=== PATIENT | male | born 1960 | race Caucasian/White ===

== ENCOUNTER → 2018-07-22 | Outpatient (CLI) | payer OTHER ==
--- NOTE | 2018-07-22 10:47 | MR ---
EXAMINATION TYPE: MR knee LT wo con DATE OF EXAM: 07/22/2018 COMPARISON: None HISTORY: Left knee pain, Internal derangement TECHNIQUE: Multiplanar, multisequence imaging of the left knee is performed without IV contrast. FINDINGS: MEDIAL MENISCUS: There is linear signal within the substance of the posterior horn medial meniscus co mpatible some internal derangement. Communication with the articular surface may potentially be along the anterior portion posterior horn of the medial meniscus. The anterior horn medial meniscus appear s normal. LATERAL MENISCUS: Anterior and posterior horns are intact without tear. CRUCIATE LIGAMENTS: The anterior and posterior cruciate ligaments are intact and unremarkable. COLLATERAL LIGAMENTS: The medial collateral ligament and lateral collateral ligament complex are inta ct and unremarkable. EXTENSOR MECHANISM: Visualized quadriceps and patellar tendons are intact. EFFUSION: There appears be minimal joint effusion. POPLITEAL CYST: No popliteal/jamil cyst. TRICOMPARTMENT SPACES: Preserved CARTILAGE: There appears to be some thinning of the articular cartilage along the anterior femoral po pliteal space. Underlying signal abnormality within the femur is present suggesting contusion. BONE MARROW SIGNAL: Increased signal within the anterior lateral femoral condyle suggestive for anter ior femoral contusion. OTHER: No additional significant abnormality is appreciated. IMPRESSION: 1. Internal derangement posterior horn medial meniscus. Horizontal tear could be considered within th e differential. 2. Small joint effusion. 3. Suspected contusion with articular thinning or injury along the anterior femur at the patellofemor al joint space.
== END ==
LOC: RADMRIMAIN 07:39
PROVIDERS: ATTEND Family Medicine
DX: M23.322 Other meniscus derangements, posterior horn of medial meniscus, left knee (principal); M25.462 Effusion, left knee

== ENCOUNTER → 2018-09-17 | Outpatient (CLI) | payer OTHER ==
[2018-09-17 13:37] LABS: Basophils % (A) 0 %; Eosinophils # (A) 0.1 k/uL (0-0.7); Eosinophils % (A) 3 %; HCT 45.6 % (39.0-53.0); HGB 15.1 gm/dL (13.0-17.5); Lymphocytes # (A) 1.8 k/uL (1.0-4.8); Lymphocytes % (A) 34 %; MCH 28.1 pg (25.0-35.0); MCHC 33.1 g/dL (31.0-37.0); MCV 84.8 fL (80.0-100.0); Mean Platelet Volume 6.3; Monocytes # (A) 0.3 k/uL (0-1.0); Monocytes % (A) 6 %; Neutrophils # (A) 2.9 k/uL (1.3-7.7); Neutrophils % (A) 55 %; Platelet Count 193 k/uL (150-450); RBC 5.38 m/uL (4.30-5.90); RDW 13.1 % (11.5-15.5); WBC 5.3 k/uL (3.8-10.6)
[2018-09-17 20:48] LABS: Anion Gap 5.6 mmol/L (4.00-12.00); Carbon Dioxide 30.4 mmol/L (21.6-31.8); Potassium 4.2 mmol/L (3.5-5.5)
== END | disposition home or self-care (01) ==
LOC: LABWHC1 12:39
PROVIDERS: ATTEND Orthopaedic Surgery
DX: Z01.818 Encounter for other preprocedural examination (principal); Z01.812 Encounter for preprocedural laboratory examination; M23.92 Unspecified internal derangement of left knee
CPT/HCPCS: 36415; 80051; 85025; 93005

== ENCOUNTER 2018-09-30 11:26 | Day surgery (SDC) | payer OTHER ==
[2018-09-28 10:53] VITALS: BMI 32.3
--- NOTE | 2018-09-29 17:27 | HP ---
HISTORY AND PHYSICAL DATE OF SURGERY: Surgery scheduled for 09/30/2018. HISTORY OF PRESENT ILLNESS: Joseph Winchester is a 58-year-old patient seen with progressive left knee pain. We discussed options. He elected to proceed with left knee arthroscopy. Consent was obtained. PAST MEDICAL HISTORY: Hyperlipidemia, hypertension. PAST SURGICAL HISTORY: Cholecystectomy. MEDICATIONS: Atorvastatin, metoprolol. ALLERGIES: None. SOCIAL HISTORY: Patient denies current tobacco use. PHYSICAL EXAMINATION: Evaluation of the left knee range of motion is 0 to 120 degrees. There is tenderness along the medial joint line. Positive medial Derrick's. Crepitus medial and patellofemoral compartments with range of motion. Some pain with patellofemoral compression. Ligaments stable. Hip rotation without pain. Distal neurovascular exam intact. RADIOGRAPHS: Left knee radiographs revealed mild patellofemoral compartment osteoarthritis. A left knee MRI revealed medial meniscal tear. IMPRESSION: Internal derangement, left knee with medial meniscal tear. PLAN: Left knee arthroscopy with partial meniscectomy and debridement. Surgery scheduled for 09/30/2018. MMODL / IJN: [id number] /
[~2018-09-30 11:26] MED LIST: DEXAMETHASONE SOD PHOSPHATE 10 MG/ML 1 ML VIAL IV ONE; LACTATED RINGERS 1,000 ML IV SCH; LIDOCAINE 1% 20 ML VIAL (10MG/ML) FOR IV START INTRADERMA PRN; MIDAZOLAM (PF) 2 MG/2 ML VIAL IV PRN; ONDANSETRON 4 MG/2 ML VIAL IVP ONE; ceFAZolin IN SWFI 2 GM/20 ML SYRINGE IVP ONE; fentaNYL (PF) 50 MCG/ML 2 ML AMP IV PRN
[2018-09-30 11:59] VITALS: TEMP 98.3
[2018-09-30] MEDS ORDERED: BUPIVACAIN-EPI 0.25%-1:200,000 30 ML VIAL SQ ONE ×3 (12:44→13:46)
[2018-09-30] MEDS ORDERED: PROPOFOL 10 MG/ML 20 ML VIAL IV ONE (13:28)
[2018-09-30] MEDS ORDERED: MIDAZOLAM 2 MG/2 ML VIAL ONE (13:28)
[2018-09-30] MEDS ORDERED: fentaNYL (PF) 50 MCG/ML 2 ML AMP ONE (13:28)
[2018-09-30] MEDS ORDERED: SUCCINYLCHOLINE CHLORIDE VIAL 200 MG/10 ML VIAL IV ONE (13:28)
[2018-09-30] MEDS ORDERED: LIDOCAINE 1% INJ 10MG/ML (20 ML MDV) ONE (13:28)
[2018-09-30] MEDS ORDERED: ceFAZolin IN SWFI 2 GM/20 ML SYRINGE IVP ONE (13:35)
--- NOTE | 2018-09-30 14:34 | P.OP ---
Date of Procedure: 09/30/18 Preoperative Diagnosis: Internal derangement left knee Postoperative Diagnosis: 1. Tear medial meniscus left knee 2. Grade 2 chondromalacia medial femoral condyle left knee 3. 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 Loose body left knee 5. Reactive synovitis medial and suprapatellar compartments left knee Procedure(s) Performed: 1. Arthroscopic partial medial meniscectomy left knee 2. Arthroscopic chondroplasty medial femoral condyle left knee 3. Arthroscopic chondroplasty patella and femoral sulcus left knee 4. Arthroscopic removal loose body left knee 5. Arthroscopic partial synovectomy medial and suprapatellar compartments left knee Anesthesia: KATIEA, local Surgeon: Christian Ayala Estimated Blood Loss (ml): 5 Pathology: none sent Condition: stable Disposition: PACU Indications for Procedure: 58-year-old patient seen with progressive left knee pain. After having treatment options discussed with him, he elected to proceed with arthroscopy. Operative Findings: See description of procedure Description of Procedure: Patient was taken to the operative suite. Patient underwent a general anesthetic by the department of anesthesia. Patient was given preoperative antibiotics. The left lower extremity was placed in a well-padded arthroscopic leg lynn. The left leg was prepped and draped in the normal sterile orthopedic fashion. A lateral parapatellar and suprapatellar incision was made. Trochars were inserted. Arthroscopy was initiated. Suprapatellar pouch revealed diffuse thick reactive synovitis. The patellofemoral joint appeared to articulate congruently. There was grade 4 chondromalacia of the patella and femoral sulcus with large osteochondral flap tears present. The scope was guided into the medial gutter. No loose bodies or plica were identified The scope was then guided into the medial compartment. A medial parapatellar incision was made. Trocar inserted followed by probe. I immediately encountered a loose body in the medial compartment. A pituitary forceps was introduced and a loose body was removed without difficulty. A probe was now introduced. There was a complex tear posterior horn medial meniscus. There were grade 2 chondromalacia changes of medial femoral condyle with some osteochondral flap tears present. There was thick reactive synovitis anteriorly. I performed a partial medial meniscectomy down to stable tissue. I performed a chondroplasty of the medial femoral condyle down to stable tissue and a partial synovectomy decompressing the reactive synovitis. The residual meniscus was found to be stable. There was good decompression of the synovitis. The residual osteochondral surface was stable. Scope and probe were then guided into the intercondylar notch. Cruciates were identified, probed and found to be stable. The scope and probe were then guided into lateral compartment. Lateral meniscus was probed and found to be stable. There were no loose bodies present. There was no synovitis present. There was chondromalaciapresent. The scope was in guided back into the suprapatellar compartment. I introduced a motorized shaver into the super compartment. I debrided some piecemeal fragments of meniscus I encountered. I performed a chondroplasty of the patella and femoral sulcus gained down to stable osteochondral tissue. I performed a partial synovectomy decompressing the thick reactive synovitis. The shaver was removed. I now took one more look on the entire knee, no residual debris. Instruments were now removed from the joint. The joint was infiltrated with .25% Marcaine. Steri-Strips were applied to the portal sites. Sterile dressings were applied. The patient was placed into a RUDY hose. No tourniquet was utilized. The patient was awakened, transferred to a bed and taken to recovery stable satisfactory condition.
[2018-09-30] MEDS ORDERED: HYDROcodone/APAP 5-325MG 1 EACH TAB PO ONE (15:30)
[2018-09-30 16:55] VITALS: BP 158/88; PULSE 59; RESP 18
== END 2018-09-30 16:45 | disposition home or self-care (01) ==
LOC: OR 11:26
PROVIDERS: ATTEND Orthopaedic Surgery
DX: S83.242A Other tear of medial meniscus, current injury, left knee, initial encounter (principal); X58.XXXA Exposure to other specified factors, initial encounter; M22.42 Chondromalacia patellae, left knee; M65.862 Other synovitis and tenosynovitis, left lower leg; E78.5 Hyperlipidemia, unspecified; I10 Essential (primary) hypertension; Z79.899 Other long term (current) drug therapy
CPT/HCPCS: 29881; J2250; J0330; J1100; J2405; J2001; J3010; J2704; J0690

== ENCOUNTER → 2018-11-25 | Outpatient (CLI) | payer OTHER ==
[2018-11-25 09:00] LABS: Blood Urea Nitrogen 23 mg/dL (9-20)
== END ==
LOC: LABWHC1 08:18
PROVIDERS: ATTEND Family Medicine
DX: D33.3 Benign neoplasm of cranial nerves (principal)
CPT/HCPCS: 36415; 82565; 84520

== ENCOUNTER → 2018-11-26 | Outpatient (CLI) | payer OTHER ==
--- NOTE | 2018-11-26 12:11 | MR ---
EXAMINATION TYPE: MR brain and iac wo/w con DATE OF EXAM: 11/26/2018 COMPARISON: None HISTORY: Acoustic Neuroma TECHNIQUE: Multiplanar, multisequence images of the brain and brainstem is performed without and with IV contras t, utilizing 11.5 mL intravenous Gadavist . Small [id number], high-resolution images obtained thro ugh the internal auditory canals. FINDINGS: Diffusion weighted images demonstrate no evidence of a recent infarct or other diffusion ab normality. There is no extra-axial fluid collection or significant white matter signal abnormality. The ventricular system and cisternal spaces are normal in size and appearance. The brain volume is age appropriate. Midline structures demonstrate normal morphology, there is a partially empty sella. The craniocervic al junction appears within normal limits. Post contrast images demonstrate no abnormal enhancement. Internal auditory canals, cerebellopontine angles are normal. The dural venous sinuses appear patent. The visualized sinuses are remarkable for mucosal disease in the maxillary sinuses, possible mucus r etention cyst in the left maxillary sinus, mastoid air cells well aerated, and the globes are intact. IMPRESSION: No evident abnormality.
== END | disposition home or self-care (01) ==
LOC: RADMRIMAIN 09:36
PROVIDERS: ATTEND Family Medicine
DX: D33.3 Benign neoplasm of cranial nerves (principal)
CPT/HCPCS: 70553; A9585

== ENCOUNTER 2019-02-11 09:28 | Day surgery (SDC) | payer OTHER ==
[2019-02-09 11:03] VITALS: BMI 32.1
[~2019-02-11 09:28] MED LIST changes: -DEXAMETHASONE SOD PHOSPHATE 10 MG/ML 1 ML VIAL IV ONE; -LIDOCAINE 1% 20 ML VIAL (10MG/ML) FOR IV START INTRADERMA PRN; -MIDAZOLAM (PF) 2 MG/2 ML VIAL IV PRN; -ONDANSETRON 4 MG/2 ML VIAL IVP ONE; -ceFAZolin IN SWFI 2 GM/20 ML SYRINGE IVP ONE; -fentaNYL (PF) 50 MCG/ML 2 ML AMP IV PRN
[2019-02-11 09:40] VITALS: TEMP 96.8
[2019-02-11] MEDS ORDERED: PROPOFOL 10 MG/ML 20 ML VIAL IV ONE (10:14)
--- NOTE | 2019-02-11 10:19 | P.GSHP ---
History of Present Illness H&P Date: 02/11/19 Chief Complaint: History of colon polyps This is a 58-year-old male who presents today for colonoscopy. Patient has a history of colon polyps. His last colonoscopy was performed at [facility] 4 years ago. Past Medical History Past Medical History: Deep Vein Thrombosis (DVT), Hypertension, Renal Disease Additional Past Medical History / Comment(s): kidney stones, lt ear tinnitus History of Any Multi-Drug Resistant Organisms: None Reported Past Surgical History: Cholecystectomy, Orthopedic Surgery Additional Past Surgical History / Comment(s): lt knee arthroscopy Past Anesthesia/Blood Transfusion Reactions: No Reported Reaction Smoking Status: Never smoker - Past Family History Mother Family Medical History: No Reported History Medications and Allergies Home Medications Medication Instructions Recorded Confirmed Type Atorvastatin [Lipitor] 10 mg PO HS 09/28/18 02/11/19 History Doxazosin Mesylate [Cardura] 8 mg PO QAM 09/28/18 02/09/19 History Metoprolol Tartrate [Lopressor] 100 mg PO QAM 09/28/18 02/09/19 History Ascorbic Acid [Vitamin C] 500 mg PO DAILY 02/09/19 02/09/19 History Aspirin [Adult Low Dose Aspirin EC] 81 mg PO DAILY 02/09/19 02/09/19 History Cholecalciferol [Vitamin D3] 1,000 unit PO DAILY 02/09/19 02/09/19 History Allergies Allergy/AdvReac Type Severity Reaction Status Date / Time No Known Allergies Allergy Verified 02/11/19 09:37 Surgical - Exam Vital Signs Temp Pulse Resp BP Pulse Ox 96.8 F L 55 L 16 181/89 96 02/11/19 09:39 02/11/19 09:39 02/11/19 09:39 02/11/19 09:39 02/11/19 09:39 - General well developed, well nourished, no distress - Eyes PERRL - ENT normal pinna - Neck no masses - Respiratory normal expansion - Cardiovascular Rhythm: regular - Abdomen Abdomen: soft, non tender Assessment and Plan Assessment: History of colon polyps. We'll perform colonoscopy.
--- NOTE | 2019-02-11 10:32 | P.OP ---
Date of Procedure: 02/11/19 Preoperative Diagnosis: History of colon polyps Postoperative Diagnosis: Normal colonoscopy Procedure(s) Performed: colonoscopy Anesthesia: MAC Surgeon: Klever Mosleey Pathology: none sent Condition: stable Disposition: PACU Description of Procedure: PROCEDURE: The patient was placed on the endoscopy table in the lateral position. Digital rectal examination was performed which revealed no abnormalities. The prostate was symmetrical without nodules. Flexible colonoscope was then placed in the patient's anus and passed throughout the entire colon. The ileocecal valve was visualized. The cecum, ascending, transverse, descending and sigmoid colon were normal. The rectum was normal as well. There were no masses, polyps or diverticula noted in the entire colon. SUMMARY OF FINDINGS: Normal colonoscopy.
[2019-02-11 10:52] VITALS: BP 168/90; PULSE 51; RESP 16
== END 2019-02-11 11:08 | disposition home or self-care (01) ==
LOC: ORWHC2ENDO 09:28
PROVIDERS: ATTEND Surgery
DX: Z12.11 Encounter for screening for malignant neoplasm of colon (principal); I10 Essential (primary) hypertension; Z86.010 Personal history of colon polyps; Z87.442 Personal history of urinary calculi; Z90.49 Acquired absence of other specified parts of digestive tract; E78.5 Hyperlipidemia, unspecified; Z79.899 Other long term (current) drug therapy; Z79.82 Long term (current) use of aspirin
CPT/HCPCS: J2704; G0105

== ENCOUNTER → 2020-12-31 | Outpatient (CLI) | payer OTHER ==
--- NOTE | 2020-12-31 11:31 | P.STRESS ---
- Stress Test Note Stress Test Results/Findings: Exam Performed: NM stress cardiolite complete Exam Date: 12/31/20 Reason for Exam: Chest Pain Height: 6 ft 1 in Weight: 107.048 kg Protocol: Dg Stage: 4 Duration of Exercise: 10:00 Resting Heart Rate: 60 Resting Blood Pressure: 148/85 Maximum Achieved Heart Rate: 150 Maximum Achieved Blood Pressure: 202/70 85% PMHR: 138 100% PMHR: 162 METS: 11.7 Technologist Comment: Stress Test Results/Findings: This is a 60-year-old gentleman with history of hypertension and the family history of ischemic or disease being evaluated for chest pain.. Stress data: Baseline EKG showed sinus rhythm with normal [place] and QRS duration with occasional PVCs. Blood pressure at rest is 148/85, pulse rate of 60. Patient walked on the Dg protocol for 10 minutes achieving a maximal heart rate of 150 with a blood pressure of about 202/70. EKGs taken during and after the exercise showed about [address] segments at peak exercise, which gradually improved within a couple of minutes. In the post x-rays.. Patient continued to have unifocal PVCs which became more frequent to the end of the test. Patient did not experience any chest pain. Final impression: #1. Mild ST-T changes during exercise could be related to hypertensive response, though ischemia cannot be completely excluded #2. Patient did not experience any chest pain #3. Patient developed frequent PVCs during exercise with some PVCs, even at rest. #4. Patient's exercise capacity is good. 5. Report on the nuclear images to be provided by radiologist.
--- NOTE | 2020-12-31 15:08 | NM ---
EXAMINATION TYPE: NM stress cardiolite complete DATE OF EXAM: 12/31/2020 COMPARISON: NONE HISTORY: Angina pectoris TECHNIQUE: After the intravenous administration of 9.59 mCi Tc 99m Sestamibi - Rest images obtained 45 minutes post injection. The patient exercised using a FREDDY protocol and 1 minute prior to peak exercise was injected with 24.9 mCi Tc 99m Sestamibi - Stress images obtained 25 minutes post injecti on. FINDINGS: Targeted heart rate was achieved during performance of the study. Review of stress and rest SPECT ghulam ges demonstrates decreased uptake on stress and rest images at the apex, there is also some mild decr eased uptake at the apex on stress as compared to rest images. Gated analysis shows normal wall bere on with an estimated left ventricular ejection fraction of 60 %. IMPRESSION: Suspect some stress-induced billie-infarct left ventricular myocardial ischemia, difficult to exclude p rior infarct the cardiac apex. A Yellow level critical message alert has been initiated for Karla Prater DO via the [employer] Critical Results System on 12/31/2020 3:05 PM. This message alert has been sent to Karla Prater DO via the preferences provided by the clinician for the receipt of Radiology Critical Findings. Message ID [id number].
--- NOTE | 2021-01-01 09:21 | EST ---
Stress Test Results/Findings: Exam Performed: IA stress cardiolite complete Exam Date: 12/31/20 Reason for Exam: Chest Pain Height: 6 ft 1 in Weight: 107.048 kg Protocol: Dg Stage: 4 Duration of Exercise: 10:00 Resting Heart Rate: 60 Resting Blood Pressure: 148/85 Maximum Achieved Heart Rate: 150 Maximum Achieved Blood Pressure: 202/70 85% PMHR: 138 100% PMHR: 162 METS: 11.7 Technologist Comment: Stress Test Results/Findings: This is a 60-year-old gentleman with history of hypertension and the family history of ischemic or disease being evaluated for chest pain.. Stress data: Baseline EKG showed sinus rhythm with normal OK and QRS duration with occasional PVCs. Blood pressure at rest is 148/85, pulse rate of 60. Patient walked on the Dg protocol for 10 minutes achieving a maximal heart rate of 150 with a blood pressure of about 202/70. EKGs taken during and after the exercise showed about [address] segments at peak exercise, which gradually improved within a couple of minutes. In the post x-rays.. Patient continued to have unifocal PVCs which became more frequent to the end of the test. Patient did not experience any chest pain. Final impression: #1. Mild ST-T changes during exercise could be related to hypertensive response, though ischemia cannot be completely excluded #2. Patient did not experience any chest pain #3. Patient developed frequent PVCs during exercise with some PVCs, even at rest. #4. Patient's exercise capacity is good. 5. Report on the nuclear images to be provided by radiologist. GLEN
== END | disposition home or self-care (01) ==
LOC: RADNMMAIN 08:16
PROVIDERS: ATTEND Family Medicine
DX: I20.9 Angina pectoris, unspecified (principal); I10 Essential (primary) hypertension
CPT/HCPCS: 93017; 78452; A9500

== ENCOUNTER → 2021-01-23 | Outpatient (CLI) | payer OTHER ==
[2021-01-23 12:31] LABS: HCT 46.4 % (39.0-53.0); HGB 15.5 gm/dL (13.0-17.5); MCH 27.8 pg (25.0-35.0); MCHC 33.4 g/dL (31.0-37.0); MCV 83.3 fL (80.0-100.0); Mean Platelet Volume 6.8; Platelet Count 205 k/uL (150-450); RBC 5.57 m/uL (4.30-5.90); RDW 13.6 % (11.5-15.5); WBC 6.1 k/uL (3.8-10.6)
[2021-01-23 12:45] LABS: African American GFR (CKD) >90 (>60 ml/min/1.73 sqM); Anion Gap 6 mmol/L; Blood Urea Nitrogen 13 mg/dL (9-20); Carbon Dioxide 31 mmol/L (22-30); Chloride 102 mmol/L (98-107); Non-African American GFR(CKD) 84 (>60 ml/min/1.73 sqM); Potassium 4.3 mmol/L (3.5-5.1); Sodium 139 mmol/L (137-145)
== END | disposition home or self-care (01) ==
LOC: LABPAT 10:46
PROVIDERS: ATTEND Internal Medicine Interventional Cardiology
DX: Z01.818 Encounter for other preprocedural examination (principal); R94.39 Abnormal result of other cardiovascular function study
CPT/HCPCS: 36415; 80051; 82565; 84520; 85027

== ENCOUNTER 2021-01-28 06:33 | Day surgery (SDC) | payer OTHER ==
[2021-01-23 13:54] VITALS: BMI 30.9
[~2021-01-28 06:33] MED LIST changes: +ALPRAZolam 0.25 MG TAB PO PRN; +ALPRAZolam 0.5 MG TAB PO PRN; -LACTATED RINGERS 1,000 ML IV SCH; +NITROGLYCERIN SL TABS 0.4 MG TAB SUBLINGUAL PRN; +SODIUM CHLORIDE 0.9% 1,000 ML in EMPTY BAG 1 BAG IV ONE
[2021-01-28 06:54] VITALS: RESP 16; TEMP 97.9
[2021-01-28] MEDS ORDERED: ATORVASTATIN 80 MG TAB PO ONE (07:00)
[2021-01-28] MEDS ORDERED: ASPIRIN 325 MG TAB PO ONE (07:00)
[2021-01-28] MEDS ORDERED: VERAPAMIL 2.5 MG/ML 2 ML AMP ONE ×2 (07:10→07:42)
[2021-01-28] MEDS ORDERED: LIDOCAINE 1% INJ 10MG/ML (20 ML MDV) ONE (07:10)
[2021-01-28] MEDS ORDERED: MIDAZOLAM 2 MG/2 ML VIAL IV ONE (07:42)
[2021-01-28] MEDS ORDERED: LIDOCAINE 1% INJ 10MG/ML (20 ML MDV) SQ ONE (07:43)
[2021-01-28] MEDS ORDERED: VERAPAMIL SYRINGE (5 MG/10 ML) INTRAARTER ONE (07:44)
[2021-01-28] MEDS ORDERED: HEPARIN SODIUM 1,000 UN/ML (10ML VL) ONE (07:46)
[2021-01-28] MEDS ORDERED: HEPARIN SODIUM 1,000 UN/ML (10ML VL) IV ONE (07:48)
[2021-01-28] MEDS ORDERED: IOPAMIDOL-370 50ML BTL INJ ONE (08:04)
[2021-01-28] MEDS ORDERED: IOPAMIDOL-370 100ML BTL INJ ONE (08:04)
--- NOTE | 2021-01-28 09:09 | CC ---
CARDIAC CATHETERIZATION REPORT DATE OF SERVICE: 01/28/2021. PROCEDURE: Left heart catheterization, coronary angiography and left ventriculography. PERFORMED BY: Dr. Meera Donnelly. Moderate conscious sedation time was 25 minutes. Patient was administered Versed. Oxygen saturation, hemodynamics and EKG were monitored closely. CLINICAL INFORMATION: Mr. Joseph Winchester is a 60-year-old gentleman with history of hypertension, hyperlipidemia, who had a positive stress test with inferior wall reversible and fixed defect with a questionable prior MS and ischemia. He was advised cardiac cath after due discussion regarding risks, benefits, and options. PROCEDURE NOTE: Under local anesthesia and strict aseptic precautions, a 6-Serbian introducer was placed in the right radial artery. Using JL3.5 and JR4 catheters I performed coronary angiography and a pigtail catheter was used to check LV pressures. LV gram was performed in 30-degree HUDSON projection. Patient tolerated the procedure well. The sheath was taken out and TR band applied as per protocol. Saturation in the fingers of the right hand was 96%. The patient tolerated procedure well without complication. CARDIAC CATHETERIZATION: The left ventricular end-diastolic pressure was 13 mmHg without any gradient across the aortic valve. CORONARY ANGIOGRAPHY FINDINGS: RIGHT CORONARY ARTERY: Technically a dominant vessel which has a small conus branch proximally. Then, there is about a 30% narrowing and distally before it bifurcates, there is another 35% narrowing and then the vessel bifurcates into PDA and PLV. The PDA and PLV both have diffuse disease and supplies a fair amount of myocardium. No significant disease in either of the vessels, but both of them have diffuse disease throughout. Distally, the RCA just before bifurcation has about a 40% narrowing as well. The dominant RCA therefore has distal lesion of 40% and both the PDA and PLV branches have minor diffuse disease. LEFT MAIN CORONARY ARTERY: This is a short patent disease-free vessel that bifurcates into LAD and circumflex. LEFT ANTERIOR DESCENDING CORONARY ARTERY: Good caliber vessel extends along the anterior wall, gives off a good-sized diagonal branch and several septal branches. In the midportion, there is a 30% to 35% narrowing and the caliber of the vessel decreases and it runs all the way to the apex supplying the inferoapical portion of left ventricle. The entire LAD has diffuse disease in it, but no critical stenosis. The mid lesion is about 40% and the vessel tapers down after the 40% narrowing. While there is no critical disease in LAD, there are diffuse areas of narrowing noted throughout. The diagonal has also minor irregularities. LEFT POSTERIOR CIRCUMFLEX CORONARY ARTERY: Technically this is a nondominant vessel but large caliber and distribution gives off a large obtuse marginal that is free of significant disease and also continues distally as a posterolateral branch which is free of significant disease. There is an AV groove branch that is also free of significant disease. LEFT VENTRICULOGRAM: This was performed in 30-degree HUDSON projection and revealed a left ventricle of normal size with catheter-induced mitral regurgitation. Ejection fraction is at least 55% without wall motion abnormality. FINAL IMPRESSION: This patient has a right dominant system. There is a distal RCA 40% stenosis with diffuse disease in both its branches. Left main and circumflex are free of significant disease. Mid LAD has a 35% lesion and the entire LAD is diffusely diseased vessel without significant stenosis. Filling pressures are normal and there is no gradient across aortic valve. RECOMMENDATIONS: I am recommending aggressive medical therapy with risk factor modification. I will increase his Lipitor to 80 mg daily and continue the lisinopril and the beta vanessa as scheduled. I am recommending aggressive lipid-lowering strategy with goals of LDL of less than 30, daily 30 minutes of brisk walking and also weight reduction and dietary discretion. The patient will be discharged later on today and I will see him in the office on Thursday. ALEXIS / JOSEPH: [id number] /
[2021-01-28 09:21] VITALS: BP 148/105
[2021-01-28 11:49] VITALS: PULSE 48
== END 2021-01-28 12:32 | disposition home or self-care (01) ==
LOC: CATHCVL 06:33
PROVIDERS: ATTEND Internal Medicine Interventional Cardiology
DX: I25.110 Atherosclerotic heart disease of native coronary artery with unstable angina pectoris (principal); I10 Essential (primary) hypertension; E78.00 Pure hypercholesterolemia, unspecified; R94.39 Abnormal result of other cardiovascular function study; E78.5 Hyperlipidemia, unspecified; I25.2 Old myocardial infarction; I49.3 Ventricular premature depolarization; Z79.82 Long term (current) use of aspirin; Z79.899 Other long term (current) drug therapy; Z82.49 Family history of ischemic heart disease and other diseases of the circulatory system
CPT/HCPCS: 93458; 87635; C1769; C1894; J2250; J2001; J1644; Q9967 ×2

== ENCOUNTER → 2023-08-21 | Outpatient (CLI) | payer OTHER ==
--- NOTE | 2023-08-23 11:31 | MR ---
EXAMINATION TYPE: MR brain wo/w con DATE OF EXAM: 08/21/2023 9:25 PM CLINICAL INDICATION:Male, 63 years old with history of H93.13 tinnitus; PHH, Hearing loss and Tinnitu s Left ear COMPARISON: 11/26/2018 TECHNIQUE: Multi planar, multi sequence imaging was performed through the brain including: T1, T2, In version recovery, susceptibility weighted imaging and gradient echo imaging and Diffusion weighted im aging. The patient was then given intravenous contrast and multi planar, T1 fat-saturation images wer e obtained. IV Contrast: 11 cc Gadobutrol FINDINGS: The salomon-white junctions, ventricular system, basal cisterns appear unremarkable. Diffusion-weighted imaging shows no evidence of restricted diffusion to suggest acute/subacute infarct. Intracranial ar terial flow voids are maintained. Midline structures show no abnormality. The susceptibility weighted images do not reveal any evidence for micro-hemorrhage. After administration of gadolinium, no abnor mal enhancement is seen. There is a developmental venous anomaly within the left temporal lobe. The bone marrow signal is within normal limits. Paranasal sinuses and mastoid air cells: No significant paranasal sinus disease. Visualized orbits: Orbital contents are intact. IMPRESSION: 1. No evidence of intracranial mass, acute/subacute infarct, or abnormal enhancement. 2. 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
== END | disposition home or self-care (01) ==
LOC: RADMRIMAIN 20:45
PROVIDERS: ATTEND Family Medicine
DX: Q28.3 Other malformations of cerebral vessels (principal); H93.13 Tinnitus, bilateral; R42 Dizziness and giddiness; R26.89 Other abnormalities of gait and mobility
CPT/HCPCS: 70553; A9585